=== PATIENT | female | born 1990 | race Caucasian/White ===

== ENCOUNTER 2018-11-06 01:51 | Emergency (ER) | payer SELFPAY ==
[2018-11-06 03:28] LABS: #Basophils 0.1 thou/uL (0.0-0.2); #Eosinphils 0.1 thou/uL (0.0-0.7); #Lymphocytes 3.5 thou/uL (1.20-3.40); #Neutrophils 5.5 thou/uL (1.40-6.50); %Basophils 0.8 % (0.0-1.0); %Eosinophils 1.4 % (0.0-10.0); %Lymphocytes 34.4 % (21.0-51.0); %Monocytes 9.7 % (0.0-10.0); %Neutrophils 53.6 % (42.0-75.0); Hemoglobin 12.8 g/dL (12.0-16.0); Mean Corpuscular HGB CONC 34.4 g/dL (32.0-36.0); Mean Corpuscular Hemoglobin 31.9 pg (27.0-31.0); Mean Corpuscular Volume 92.8 fL (78.0-98.0); Mean Platelet Volume 8.2 fL (7.4-10.4); Platelet Count 261 thou/uL (130-400); RBC Distribution Width 11.3 % (11.5-14.5); Red Blood Cell (RBC) Count 4.02 mill/uL (4.20-5.40); White Blood Cell (WBC) Count 10.3 thou/uL (4.8-10.8)
[2018-11-06 03:34] LABS: BHCG - Serum POSITIVE (NEGATIVE); Pregs Control Background? CLEAR/WHITE (CLR/WHITE); Pregs Control Bar Appear? YES (CONTROL BAR)
[2018-11-06 04:36] LABS: Bacteria/HPF None Seen HPF (None Seen); Bilirubin Negative (Negative); Blood, Urine 2+ (Negative); Clarity Clear (Clear); Glucose, Urine (Dipstick) Normal (Negative); Leukocyte Negative Leu/uL (Negative); Nitrite Negative (Negative); Protein, Urine (Dipstick) Negative (Neg-Trace); Urobilinogen Normal mg/dL (Less than 2); WBC/HPF 0-3 HPF (0-3)
[2018-11-06] MEDS ORDERED: Acetaminophen 500 MG TAB ONE (05:12)
--- NOTE | 2018-11-06 07:30 | ULT ---
FIRST TRIMESTER OBSTETRICAL ULTRASOUND: Date: 11/06/18 INDICATION: Vaginal bleeding and early (clinically at 10 weeks per patient). TECHNIQUE: Walker scale, color Doppler, and spectral Doppler images were obtained of the pelvis via transabdominal and transvaginal approach. FINDINGS: There is an intrauterine gestational sac with a pole. Granville-rump length was 6.7 mm, giving an e stimated gestational age by ultrasound of 6 weeks and 4 days. There are no associated heart ton es. Small amount of free fluid is present within the retrouterine space. The uterus measures 11.2 x 5 .8 x 7.3 cm. The left ovary measures 3.1 x 1.9 x 1.8 cm. There is a 1.1 cm corpus luteal cyst within the left ovar y. Right ovary measures 2.6 x 1.1 x 1.1 cm. There is normal flow to the right ovary. IMPRESSION: 1. Intrauterine gestational sac with pole identified without identifiable heart tones. F indings are consistent with an intrauterine of undetermined viability. Recommend continued clinical and sonographic follow-up. 2. Left ovarian corpus luteal cyst. POS: BH
== END 2018-11-06 06:29 | disposition home or self-care (01) ==
LOC: ERS 01:51
DX: O02.1 Missed abortion (principal); F17.210 Nicotine dependence, cigarettes, uncomplicated
CPT/HCPCS: 36415; 76856; 81003; 81015; 84702; 84703; 85025; 86900; 86901; 90384; 96372

== ENCOUNTER 2018-11-08 17:59 | Emergency (ER) | payer MEDICAID, SELFPAY ==
[2018-11-08] MEDS ORDERED: Ketorolac Tromethamine 30 MG/ML VIAL ONE (18:13)
[2018-11-08] MEDS ORDERED: Lorazepam 2 MG/ML VIAL ONE (18:13)
[2018-11-08] MEDS ORDERED: Morphine 4 MG/ML VIAL ONE ×3 (18:37→22:55)
[2018-11-08 18:47] LABS: #Basophils 0.1 thou/uL (0.0-0.2); #Eosinphils 0.1 thou/uL (0.0-0.7); #Lymphocytes 4.4 thou/uL (1.20-3.40); #Monocytes 1.2 thou/uL (0.11-0.59); #Neutrophils 8.1 thou/uL (1.40-6.50); %Basophils 0.6 % (0.0-1.0); %Eosinophils 0.7 % (0.0-10.0); %Lymphocytes 31.7 % (21.0-51.0); %Monocytes 8.8 % (0.0-10.0); %Neutrophils 58.3 % (42.0-75.0); Hemoglobin 14.2 g/dL (12.0-16.0); Mean Corpuscular HGB CONC 34.2 g/dL (32.0-36.0); Mean Corpuscular Hemoglobin 31.7 pg (27.0-31.0); Mean Corpuscular Volume 92.7 fL (78.0-98.0); Mean Platelet Volume 8.5 fL (7.4-10.4); Platelet Count 339 thou/uL (130-400); RBC Distribution Width 11.6 % (11.5-14.5); Red Blood Cell (RBC) Count 4.49 mill/uL (4.20-5.40); White Blood Cell (WBC) Count 13.8 thou/uL (4.8-10.8)
[2018-11-08 18:57] LABS: ALT (SGPT) 10 U/L (8-55); AST (SGOT) 16 U/L (5-34); Albumin 4.8 g/dL (3.5-5.0); Alkaline Phosphatase 61 U/L (40-150); Anion Gap 17 mmol/L (10-20); BUN (Urea Nitrogen) 13 mg/dL (7.0-18.7); Bilirubin, Total 0.5 mg/dL (0.2-1.2); Calc. Creatinine Clearance 0 mL/min (70-130); Calcium 10.3 mg/dL (7.8-10.44); Carbon Dioxide 18 mmol/L (22-29); Chloride 107 mmol/L (98-107); Estimated GFR-MDRD 85; Globulin 3.4 g/dL (2.4-3.5); Glucose 99 mg/dL (70-105); Potassium 3.8 mmol/L (3.5-5.1); Protein, Total 8.2 g/dL (6.0-8.3); Sodium 138 mmol/L (136-145)
--- NOTE | 2018-11-08 21:08 | ULT ---
Pelvic ultrasound: 11/08/2018 COMPARISON: 11/06/2018 HISTORY: 28-year-old female, concern for demise on prior ultrasound TECHNIQUE: Multiplanar grayscale sonographic imaging of the pelvis obtained with transabdominal imagi ng. The patient refused endovaginal imaging. Left ovary assessed with color flow and spectral analysis FINDINGS: There is an intrauterine gestational sac noted. The gestational sac is misshapen. There is a pole seen along the lateral aspect of the gestational sac. A yolk sac is noted. No heart tones could be seen on this exam. Right ovary could not be visualized. Left ovary demonstrates normal blood flow and measures 2.7 x 3.0 x 3.0 cm. Uterus measures 10.9 x 5.1 x 5.9 cm. There is small volume free fluid in the pelvic cul-de-sac. There is a probable tiny subchorionic hemorrhage measuring in the 7-8 mm range. Bantry-rump length of 6 mm correlates with a 6 week 3 day gestation while gestational sac diameter of 4.1 cm correlates with a 9 week 4 day gestation. IMPRESSION: Sonographic findings concerning for demise as above.
== END 2018-11-08 23:11 | disposition home or self-care (01) ==
LOC: ERS 17:59
DX: O03.4 Incomplete spontaneous abortion without complication (principal); Z71.6 Tobacco abuse counseling; F17.210 Nicotine dependence, cigarettes, uncomplicated
CPT/HCPCS: 76856; 80053; 84702; 85025; 93976; 96374; 96375; 96376; 99406; J1885; J2060; J2270

== ENCOUNTER 2019-12-22 12:39 | Outpatient (CLI) | payer OTHER ==
--- NOTE | 2019-12-22 14:25 | RAD ---
TWO VIEW CHEST: HISTORY: Bronchitis. FINDINGS: Lung rice are clear. Heart and mediastinum appear normal. Osseous structures appear normal. IMPRESSION: Negative chest. POS: AGW
== END 2019-12-22 12:40 | disposition home or self-care (01) ==
LOC: RAD 12:39
DX: J20.9 Acute bronchitis, unspecified (principal)
CPT/HCPCS: 71046

== ENCOUNTER 2020-02-13 13:07 | Emergency (ER) | payer OTHER ==
[2020-02-14 12:11] LABS: SARS-CoV-2 MS2 Positive; SARS-CoV-2 N Gene Negative; SARS-CoV-2 S Gene Negative; SARS-CoV-2 by NAA Not Detected (NotDetected); SARS-CoV-2 orf1ab Negative
== END 2020-02-13 14:12 | disposition home or self-care (01) ==
LOC: ERS 13:07
DX: R05 Cough (principal); R11.2 Nausea with vomiting, unspecified; Z20.828 Contact with and (suspected) exposure to other viral communicable diseases; F17.210 Nicotine dependence, cigarettes, uncomplicated
CPT/HCPCS: 87635; 99283; U0003

== ENCOUNTER 2020-02-24 18:51 | Emergency (ER) | payer OTHER ==
--- NOTE | 2020-02-24 20:44 | RAD ---
EXAM: 3 views of the left ankle HISTORY: Ankle pain after fall COMPARISON: None FINDINGS: 3 views of the left ankle shows no evidence of acute fracture or dislocation. No soft tissu e swelling is seen. No degenerative changes are present. IMPRESSION: No evidence of acute osseous abnormality.
[2020-02-24] MEDS ORDERED: HYDROcodone/Acetaminophen 5/325 mg Tablet ONE (21:01)
== END 2020-02-24 21:05 | disposition home or self-care (01) ==
LOC: ERS 18:51
DX: M25.572 Pain in left ankle and joints of left foot (principal); F17.210 Nicotine dependence, cigarettes, uncomplicated; W19.XXXA Unspecified fall, initial encounter

== ENCOUNTER 2021-02-21 14:29 | Emergency (ER) | payer OTHER ==
[2021-02-21] MEDS ORDERED: Ketorolac Tromethamine 30 MG/ML VIAL ONE (15:37)
[2021-02-21] MEDS ORDERED: Ondansetron PF 4 MG/2 ML Vial ONE (15:37)
[2021-02-21 15:43] LABS: Bacteria/HPF 3+ HPF (None Seen); Bilirubin Negative (Negative); Blood, Urine Trace (Negative); Clarity Clear (Clear); Glucose, Urine (Dipstick) Normal (Negative); Ketone, Urine Negative (Negative); Leukocyte Negative Leu/uL (Negative); Nitrite Negative (Negative); Protein, Urine (Dipstick) Negative (Neg-Trace); RBC/HPF 0-3 HPF (0-3); Specific Gravity, Urine 1.007 (1.002-1.036); Urobilinogen Normal mg/dL (Less than 2); WBC/HPF 0-3 HPF (0-3); pH, Urine 6.5 (5.0-9.0)
[2021-02-21 15:44] LABS: Pregnancy Test - Urine (BHCG) Negative (Negative); Pregu Control Background? CLEAR/WHITE (CLR/WHITE); Pregu Control Bar Appear? YES (CONTROL BAR); Specific Gravity 1.007 (1.002-1.036)
[2021-02-21 16:08] LABS: #Basophils 0.1 thou/uL (0.0-0.2); #Eosinphils 0.1 thou/uL (0.0-0.7); #Lymphocytes 2.2 thou/uL (1.20-3.40); #Monocytes 0.7 thou/uL (0.11-0.59); #Neutrophils 3.1 thou/uL (1.40-6.50); %Basophils 1.2 % (0.0-1.0); %Eosinophils 1.5 % (0.0-10.0); %Monocytes 11.8 % (0.0-10.0); %Neutrophils 50.6 % (42.0-75.0); Hemoglobin 15.2 g/dL (12.0-16.0); Mean Corpuscular HGB CONC 33.6 g/dL (32.0-36.0); Mean Corpuscular Hemoglobin 32.9 pg (27.0-31.0); Mean Platelet Volume 8.2 fL (7.4-10.4); Platelet Count 259 thou/uL (130-400); RBC Distribution Width 12.1 % (11.5-14.5); Red Blood Cell (RBC) Count 4.61 mill/uL (4.20-5.40); White Blood Cell (WBC) Count 6.2 thou/uL (4.8-10.8)
[2021-02-21 16:46] LABS: ALT (SGPT) 23 U/L (8-55); AST (SGOT) 25 U/L (5-34); Albumin 4.6 g/dL (3.5-5.0); Alkaline Phosphatase 72 U/L (40-110); Anion Gap 11 mmol/L (10-20); BUN (Urea Nitrogen) 7 mg/dL (7.0-18.7); Bilirubin, Total 0.4 mg/dL (0.2-1.2); Calc. Creatinine Clearance 0 mL/min (70-130); Calcium 9.6 mg/dL (7.8-10.44); Carbon Dioxide 26 mmol/L (22-29); Chloride 106 mmol/L (98-107); Globulin 3.4 g/dL (2.4-3.5); Glucose 66 mg/dL (70-105); Lipase 53 U/L (8-78); Sodium 139 mmol/L (136-145)
== END 2021-02-21 18:16 | disposition home or self-care (01) ==
LOC: ERS 14:29
DX: A08.4 Viral intestinal infection, unspecified (principal); F17.210 Nicotine dependence, cigarettes, uncomplicated
CPT/HCPCS: 80053; 81003; 81015; 81025; 83690; 85025; 87086; 96374; 96375; J1885; J2405

== ENCOUNTER 2021-04-10 21:33 | Emergency (ER) | payer OTHER ==
[2021-04-10] MEDS ORDERED: Ondansetron PF 4 MG/2 ML Vial ONE (22:55)
[2021-04-10] MEDS ORDERED: Ketorolac Tromethamine 30 MG/ML VIAL ONE (22:55)
[2021-04-11] MEDS ORDERED: diphenhydrAMINE 50 MG/ML VIAL ONE ×2 (00:10→00:18)
[2021-04-11] MEDS ORDERED: Acetaminophen 500 MG TAB ONE (00:10)
[2021-04-11] MEDS ORDERED: methylPREDNISolone Sod Succ/PF 125 MG/2 ML VIAL ONE ×2 (00:10→00:18)
[2021-04-11 01:01] LABS: Bacteria/HPF None Seen HPF (None Seen); Bilirubin Negative (Negative); Blood, Urine 3+ (Negative); Clarity Clear (Clear); Glucose, Urine (Dipstick) Normal (Negative); Ketone, Urine 40 mg/dL (Negative); Leukocyte 25 Leu/uL (Negative); Mucous/LPF 2+ LPF (<2+); Nitrite Negative (Negative); Pregnancy Test - Urine (BHCG) Negative (Negative); Pregu Control Background? CLEAR/WHITE (CLR/WHITE); Pregu Control Bar Appear? YES (CONTROL BAR); Protein, Urine (Dipstick) Negative (Neg-Trace); Squamous Epithelial 0-3 HPF (0-3); Urobilinogen Normal mg/dL (Less than 2)
[2021-04-11 14:29] LABS: SARS-CoV-2 PCR by NAA DETECTED (NotDetected)
== END 2021-04-11 02:30 | disposition home or self-care (01) ==
LOC: ERS 21:33
DX: U07.1 COVID-19 (principal); F17.210 Nicotine dependence, cigarettes, uncomplicated
CPT/HCPCS: 81003; 81015; 81025; 87804; 96374; 96375; J1200; J1885; J2405; J2930; U0003; U0005

== ENCOUNTER 2021-04-25 18:36 | Emergency (ER) | payer OTHER | END 2021-04-25 20:47 | disposition home or self-care (01) | LOC: ERS 18:36 | DX: R11.2 Nausea with vomiting, unspecified (principal); F17.210 Nicotine dependence, cigarettes, uncomplicated | CPT/HCPCS: 99283 ==

== ENCOUNTER 2021-12-23 22:33 | Emergency (ER) | payer OTHER ==
[2021-12-23] MEDS ORDERED: Ondansetron ODT 4 MG TAB ONE (22:59)
[2021-12-23 23:10] LABS: Hemoglobin 13.1 g/dL (12.0-16.0); Mean Corpuscular HGB CONC 32.7 g/dL (32.0-36.0); Mean Corpuscular Volume 94.8 fL (78.0-98.0); RBC Distribution Width 11.7 % (11.5-14.5); Red Blood Cell (RBC) Count 4.21 mill/uL (4.20-5.40); White Blood Cell (WBC) Count 5.3 thou/uL (4.8-10.8)
[2021-12-23 23:15] LABS: BHCG - Serum Negative (NEGATIVE); Pregs Control Background? CLEAR/WHITE (CLR/WHITE); Pregs Control Bar Appear? YES (CONTROL BAR)
[2021-12-23 23:21] LABS: #Lymphocytes 1.5 thou/uL (1.20-3.40); #Monocytes 0.6 thou/uL (0.11-0.59); #Neutrophils 3.2 thou/uL (1.40-6.50); %Basophils 0.4 % (0.0-1.0); %Eosinophils 0.2 % (0.0-10.0); %Lymphocytes 28.5 % (21.0-51.0); %Monocytes 11.8 % (0.0-10.0); %Neutrophils 59.1 % (42.0-75.0); Platelet Count 109 thou/uL (130-400); Platelet Morphology Comment Appears Decreased
[2021-12-23 23:33] LABS: ALT (SGPT) 317 U/L (8-55); AST (SGOT) 391 U/L (5-34); Albumin 4.2 g/dL (3.5-5.0); Alkaline Phosphatase 58 U/L (40-110); Anion Gap 13 mmol/L (10-20); BUN (Urea Nitrogen) 17 mg/dL (7.0-18.7); Bilirubin, Total 0.3 mg/dL (0.2-1.2); Calc. Creatinine Clearance 0 mL/min (70-130); Calcium 8.8 mg/dL (7.8-10.44); Carbon Dioxide 20 mmol/L (22-29); Chloride 109 mmol/L (98-107); Estimated GFR 103; Glucose 92 mg/dL (70-105); Potassium 3.9 mmol/L (3.5-5.1); Protein, Total 7.2 g/dL (6.0-8.3); Sodium 138 mmol/L (136-145)
[2021-12-24 01:45] LABS: Bilirubin Negative (Negative); Blood, Urine Negative (Negative); Clarity Clear (Clear); Glucose, Urine (Dipstick) Normal (Negative); Ketone, Urine 40 mg/dL (Negative); Leukocyte Negative Leu/uL (Negative); Nitrite Negative (Negative); Protein, Urine (Dipstick) 30 mg/dL (Neg-Trace)
[2021-12-24 01:46] LABS: Pregnancy Test - Urine (BHCG) Negative (Negative); Pregu Control Background? CLEAR/WHITE (CLR/WHITE); Pregu Control Bar Appear? YES (CONTROL BAR)
[2021-12-24 01:49] LABS: Specific Gravity, Urine 1.044 (1.002-1.036)
[2021-12-24 01:50] LABS: Bacteria/HPF 2+ HPF (None Seen)
[2021-12-24 01:51] LABS: Specific Gravity 1.044 (1.002-1.036)
[2021-12-24] MEDS ORDERED: Metoclopramide HCl 10 MG/2 ML VIAL ONE (01:57)
[2021-12-24] MEDS ORDERED: Ketorolac Tromethamine 30 MG/ML VIAL ONE (01:57)
== END 2021-12-24 03:45 | disposition home or self-care (01) ==
LOC: ERS 22:33
DX: B34.9 Viral infection, unspecified (principal); F17.210 Nicotine dependence, cigarettes, uncomplicated
CPT/HCPCS: 36415; 71045; 80053; 81003; 81015; 81025; 84703; 85025; 96365; 96366; 96375; J1885; J2765; Q0162

== ENCOUNTER 2024-02-16 18:42 | Emergency (ER) | payer OTHER, SELFPAY ==
[2024-02-16] MEDS ORDERED: Ondansetron PF 4 MG/2 ML Vial ONE (19:41)
[2024-02-16] MEDS ORDERED: Famotidine/PF 20 mg/2ml Vial ONE (19:48)
[2024-02-16 19:50] LABS: #Basophils Less than 0.03 10x3/uL (0.0-0.2); %Basophils 0.3 % (0.0-1.0); %Eosinophils 0.5 % (0.0-10.0); %Lymphocytes 19.7 % (21.0-51.0); %Monocytes 9.6 % (0.0-10.0); %Neutrophils 69.7 % (42.0-75.0); Hemoglobin 13.5 g/dL (12.0-16.0); Mean Corpuscular HGB CONC 32.9 g/dL (32.0-36.0); Mean Corpuscular Volume 88.2 fL (78.0-98.0); Mean Platelet Volume 9.9 fL (7.4-10.4); Platelet Count 262 10x3/uL (130-400); Red Blood Cell (RBC) Count 4.65 mill/uL (4.20-5.40)
[2024-02-16 20:05] LABS: BHCG - Serum Negative (NEGATIVE); Pregs Control Background? CLEAR/WHITE (CLR/WHITE); Pregs Control Bar Appear? YES (CONTROL BAR)
[2024-02-16 20:07] LABS: ALT (SGPT) 15 U/L (8-55); AST (SGOT) 22 U/L (5-34); Albumin 4.3 g/dL (3.5-5.0); Alkaline Phosphatase 60 U/L (40-110); Anion Gap 15 mmol/L (10-20); BUN (Urea Nitrogen) 17 mg/dL (7.0-18.7); Bilirubin, Total 0.4 mg/dL (0.2-1.2); Calc. Creatinine Clearance 0 mL/min (70-130); Calcium 9.3 mg/dL (7.8-10.44); Carbon Dioxide 19 mmol/L (22-29); Chloride 104 mmol/L (98-107); Estimated GFR 86; Globulin 4.3 g/dL (2.4-3.5); Glucose 93 mg/dL (70-105); Lipase 35 U/L (8-78); Potassium 3.9 mmol/L (3.5-5.1); Protein, Total 8.6 g/dL (6.0-8.3); Sodium 134 mmol/L (136-145)
[2024-02-16 20:22] LABS: Bacteria/HPF 1+ HPF (None Seen); Bilirubin 1+ (Negative); Blood, Urine 1+ (Negative); CAUTI Indications for Culture Pelvic or flank pain; Clarity Turbid (Clear); Glucose, Urine (Dipstick) Normal (Negative); Ketone, Urine Negative (Negative); Leukocyte 250 Leu/uL (Negative); Nitrite Negative (Negative); Protein, Urine (Dipstick) 100 mg/dL (Neg-Trace); RBC/HPF 21-50 HPF (0-3); Specific Gravity, Urine 1.031 (1.002-1.036); Squamous Epithelial 21-50 HPF (0-3); Urobilinogen 3 mg/dL (Less than 2)
[2024-02-16 20:24] LABS: Urine Culture Reflex Yes Yes
[2024-02-16] MEDS ORDERED: Metoclopramide HCl 10 MG (2 mL) VIAL ONE (20:54)
[2024-02-16] MEDS ORDERED: Sodium Chloride 0.9% 100 ML ONE (20:54)
[2024-02-16] MEDS ORDERED: CEFAZOLIN 1 GM VIAL ONE (20:54)
[2024-02-16] MEDS ORDERED: Ketorolac Tromethamine 30 MG (1 mL) VIAL ONE (20:54)
== END 2024-02-16 22:20 | disposition home or self-care (01) ==
LOC: ERS 18:42
DX: R11.10 Vomiting, unspecified (principal); R19.7 Diarrhea, unspecified; N39.0 Urinary tract infection, site not specified; F17.210 Nicotine dependence, cigarettes, uncomplicated
CPT/HCPCS: 36415; 80053; 81001; 83690; 84703; 85025; 87077; 87086; 96361; 96365; 96368; 96375; J0690; J1885; J2405; J2765; J3490